=== PATIENT | female | born 1985 | race Caucasian/White ===

== ENCOUNTER 2019-05-20 15:13 | Emergency (ER) | payer OTHER ==
[~2019-05-20] VITALS: Ht 162.6 cm; Wt 60.8 kg
[2019-05-20] MEDS ORDERED: KETO10TA2 PO (17:00)
== END 2019-05-20 17:10 | disposition home or self-care (01) ==
LOC: ER 15:13
DX: H60.8X1 Other otitis externa, right ear (principal); G44.209 Tension-type headache, unspecified, not intractable